=== PATIENT | male | born 1960 | race Two or more races ===

== ENCOUNTER 2017-01-28 21:17 | Emergency (ER) | payer MEDICAID, OTHER ==
[~2017-01-28] VITALS: Ht 172.7 cm; Wt 72.6 kg
[2017-01-28 21:31] VITALS: BP 152/101
== END 2017-01-28 21:46 | disposition home or self-care (01) ==
LOC: ER 21:24
DX: J40 Bronchitis, not specified as acute or chronic (principal)
CPT/HCPCS: 99282; A4606; Z7610